=== PATIENT | female | born 1960 | race Caucasian/White ===

== ENCOUNTER 2020-02-15 08:24 | Emergency (ER) | payer MEDICAID ==
[~2020-02-15] VITALS: Ht 154.9 cm; Wt 57.5 kg
[~2020-02-15 08:24] MED LIST: ASCO500T9 PO; CHLO25CA9 PO; CHOL500045 PO; GABA300C PO; ZINC220C7 PO
--- NOTE | 2020-02-15 08:50 | NUR ---
PT WITH RECENT DIAGNOSIS OF LIVER CIRROHSIS D/T ETOH ABUSE. PT SEEN HERE RECENTLY WITH PARACENTESIS. PT D/C WAS UNABLE TO FILL MEDICATIONS D/T HER INSURRANCE, SHE IS BACK TO HAVE HER ABD DRAINED AGAIN. PT DENIES N/V/D.
[2020-02-15 09:21] LABS: BASOPHILS # (AUTO) 0.02 x10^3/uL (0-0.1); BASOPHILS % (AUTO) 0 % (0-1); EOSINOPHILS # (AUTO) 0.06 x10^3/uL (0-0.4); EOSINOPHILS % (AUTO) 1 % (1-7); LYMPHOCYTES % (AUTO) 36 % (22-44); MD NO; MEAN CORPUSCULAR HEMOGLOBIN 35.2 pg (27.0-34.8); MEAN CORPUSCULAR HGB CONC 33.3 g/dL (32.4-35.8); MEAN CORPUSCULAR VOLUME 105.8 fL (80-100); MEAN PLATELET VOLUME 7.6 fL (7.4-10.4); MONOCYTES # (AUTO) 0.51 x10^3/uL (0.2-0.8); MONOCYTES % (AUTO) 9 % (2-9); NEUTROPHILS # (AUTO) 2.97 x10^3/uL (1.8-6.8); NEUTROPHILS % (AUTO) 53 % (42-75); PLATELET COUNT 123 x10^3/uL (130-400); RED BLOOD COUNT 3.72 x10^6/uL (3.82-5.3)
[2020-02-15 09:31] LABS: INTERNATIONAL NORMALIZED RATIO 1.27 (0.93-1.1); PROTHROMBIN TIME 13.1 Seconds (9.6-11.5)
[2020-02-15 09:32] VITALS: BP 129/89
[2020-02-15 09:33] LABS: ALBUMIN 2.4 g/dL (3.4-5.0); ANION GAP 4 mmol/L (5-15); CHLORIDE 110 mmol/L (98-107)
[2020-02-15 09:38] LABS: ALANINE AMINOTRANSFERASE 59 U/L (12-78); ALKALINE PHOSPHATASE 161 U/L (45-117); BILIRUBIN,TOTAL 1.7 mg/dL (0.2-1.0); CREATININE 0.63 mg/dL (0.55-1.02); TOTAL PROTEIN 6.8 g/dL (6.4-8.2)
--- NOTE | 2020-02-15 09:40 | NUR ---
US AT BEDSIDE
[2020-02-15] MEDS ORDERED: LIDOCAINE 1%, 10ML ONE (10:06)
== END 2020-02-15 11:26 | disposition home or self-care (01) ==
LOC: ED 09:36
DX: K70.31 Alcoholic cirrhosis of liver with ascites (principal); R94.31 Abnormal electrocardiogram [ECG] [EKG]; F17.210 Nicotine dependence, cigarettes, uncomplicated
CPT/HCPCS: 36415; 49083; 76705; 80053; 83690; 83735; 85025; 85610; 93005; 99285; J3490

== ENCOUNTER 2020-03-05 14:14 | Emergency (ER) | payer MEDICAID ==
[~2020-03-05] VITALS: Ht 154.9 cm; Wt 59.1 kg
[2020-03-05 15:16] LABS: BASOPHILS # (AUTO) 0.04 x10^3/uL (0-0.1); BASOPHILS % (AUTO) 1 % (0-1); EOSINOPHILS # (AUTO) 0.08 x10^3/uL (0-0.4); EOSINOPHILS % (AUTO) 1 % (1-7); LYMPHOCYTES # (AUTO) 2.18 x10^3/uL (1-3.4); LYMPHOCYTES % (AUTO) 37 % (22-44); MD NO; MEAN CORPUSCULAR HGB CONC 34.2 g/dL (32.4-35.8); MEAN CORPUSCULAR VOLUME 102.4 fL (80-100); MEAN PLATELET VOLUME 8.1 fL (7.4-10.4); MONOCYTES # (AUTO) 0.76 x10^3/uL (0.2-0.8); MONOCYTES % (AUTO) 13 % (2-9); NEUTROPHILS # (AUTO) 2.81 x10^3/uL (1.8-6.8); NEUTROPHILS % (AUTO) 48 % (42-75); PLATELET COUNT 163 x10^3/uL (130-400); RED BLOOD COUNT 3.62 x10^6/uL (3.82-5.3); RED CELL DISTRIBUTION WIDTH 14.1 % (9.6-15.2)
[2020-03-05 15:29] LABS: INTERNATIONAL NORMALIZED RATIO 1.22 (0.93-1.1); PROTHROMBIN TIME 12.6 Seconds (9.6-11.5)
--- NOTE | 2020-03-05 15:45 | NUR ---
CORE STICKER: PT TO ROOM AT THIS TIME. KATHIA
[2020-03-05 15:52] LABS: CHLORIDE 109 mmol/L (98-107)
--- NOTE | 2020-03-05 15:54 | NUR ---
CONTACT WITH PT, 59 YR OLD FEMALE HERE WITH C/O "MY TUMMY NEEDS TO BE DRAINED. IT TOOK LONGER THIS TIME TO BE FILLED (WEEK TO WEEK AND A HALF)" PT JUST UNCOMFORTABLE. "I QUIT DRINKING COLD TURKEY ON FEBRUARY 10. I WAS JUST DONE"
[2020-03-05 15:56] LABS: ALANINE AMINOTRANSFERASE 58 U/L (12-78); ALBUMIN 2.4 g/dL (3.4-5.0); ALKALINE PHOSPHATASE 172 U/L (45-117); ANION GAP 5 mmol/L (5-15); BILIRUBIN,TOTAL 1.1 mg/dL (0.2-1.0); CALCIUM 8.7 mg/dL (8.5-10.1); CREATININE 0.61 mg/dL (0.55-1.02); TOTAL PROTEIN 6.9 g/dL (6.4-8.2)
[2020-03-05] MEDS ORDERED: MULT-658 PO (16:00)
[2020-03-05] MEDS ORDERED: VITA1TAB19 PO (16:00)
--- NOTE | 2020-03-05 16:55 | NUR ---
PT IN IR FOR PARACENTESIS
[2020-03-05 17:24] VITALS: BP 161/86
--- NOTE | 2020-03-05 17:25 | NUR ---
PT RETURN TO ROOM, STATES "I FEEL SO MUCH BETTER" ABD CONT ROUNDED, DECREASED IN SIZE AND SOFT. WAITING FOR FURTHER DISPOSITION.
--- NOTE | 2020-03-05 18:14 | NUR ---
NO IV TO DC. REVIEWED DC INSTRUCTIONS WITH PT. UNDERSTANDING VERBALIZED. PT LEFT AMB, GAIT STEADY.
== END 2020-03-05 18:16 | disposition home or self-care (01) ==
LOC: ED 17:50
DX: K70.31 Alcoholic cirrhosis of liver with ascites (principal); F17.210 Nicotine dependence, cigarettes, uncomplicated
CPT/HCPCS: 36415; 49083; 80053; 85025; 85610; 99285; 99406

== ENCOUNTER 2020-03-16 18:19 | Emergency (ER) | payer MEDICAID ==
[~2020-03-16] VITALS: Ht 154.9 cm; Wt 58.7 kg
[~2020-03-16 18:19] MED LIST changes: +MULT-658 PO; +VITA1TAB19 PO
--- NOTE | 2020-03-16 18:40 | NUR ---
THIS IS A 59 YO FEMALE RECENTLY DIAGNOSED WITH CIRRHOSIS BEGINNING OF FEBRUARY, COMING IN WITH C/O ABD DISTENTION AND "FEELING FULL". MARKED ASCITIC ABDOMEN PRESENT, FIRM TO TOUCH, NO PAIN NOTED. LAST PARACENTESIS DONE Feb. A&OX4, GCS 15, MOVES ALL EXTREMITIES WELL. RESPIRATIONS EVEN AND UNLABORED, LUNG SOUNDS CLEAR THROUGHOUT. ALL MONITORING IN PLACE, NSR ON REHABILITATION SPECIALIST. VSS, CALL LIGHT IN REACH
[2020-03-16] MEDS ORDERED: LIDOCAINE 1%, 10ML ONE (19:05)
--- NOTE | 2020-03-16 19:11 | NUR ---
PATIENT TO IR
--- NOTE | 2020-03-16 19:50 | NUR ---
Pt return from IR at this time, states feeling "much better", reports 2200ml drained off
[2020-03-16 19:51] VITALS: BP 121/78
--- NOTE | 2020-03-16 20:36 | NUR ---
Patient given discharge instructions and they have confirmed that they understand the instructions. Patient ambulatory with steady gait.
== END 2020-03-16 20:39 | disposition home or self-care (01) ==
LOC: ED 19:53
DX: K70.31 Alcoholic cirrhosis of liver with ascites (principal); R10.84 Generalized abdominal pain; F17.200 Nicotine dependence, unspecified, uncomplicated
CPT/HCPCS: 49083; 99285; J3490

== ENCOUNTER 2020-03-23 19:45 | Emergency (ER) | payer MEDICAID ==
[~2020-03-23] VITALS: Ht 157.5 cm; Wt 59.1 kg
[2020-03-23 22:21] VITALS: BP 170/99
[2020-03-23 22:55] LABS: BASOPHILS # (AUTO) 0.03 x10^3/uL (0-0.1); BASOPHILS % (AUTO) 0 % (0-1); EOSINOPHILS # (AUTO) 0.13 x10^3/uL (0-0.4); EOSINOPHILS % (AUTO) 2 % (1-7); LYMPHOCYTES # (AUTO) 2.64 x10^3/uL (1-3.4); LYMPHOCYTES % (AUTO) 37 % (22-44); MD NO; MEAN CORPUSCULAR HEMOGLOBIN 33.8 pg (27.0-34.8); MEAN CORPUSCULAR HGB CONC 33.9 g/dL (32.4-35.8); MEAN CORPUSCULAR VOLUME 99.7 fL (80-100); MEAN PLATELET VOLUME 7.3 fL (7.4-10.4); MONOCYTES # (AUTO) 0.76 x10^3/uL (0.2-0.8); MONOCYTES % (AUTO) 11 % (2-9); NEUTROPHILS # (AUTO) 3.54 x10^3/uL (1.8-6.8); NEUTROPHILS % (AUTO) 50 % (42-75); PLATELET COUNT 181 x10^3/uL (130-400); RED BLOOD COUNT 3.83 x10^6/uL (3.82-5.3); RED CELL DISTRIBUTION WIDTH 13.9 % (9.6-15.2)
[2020-03-23 23:18] LABS: ALBUMIN 2.5 g/dL (3.4-5.0); CALCIUM 8.7 mg/dL (8.5-10.1)
[2020-03-23 23:49] LABS: ALANINE AMINOTRANSFERASE 56 U/L (12-78); ALKALINE PHOSPHATASE 178 U/L (45-117); CHLORIDE 109 mmol/L (98-107); CREATININE 0.73 mg/dL (0.55-1.02); TOTAL PROTEIN 7.2 g/dL (6.4-8.2)
[2020-03-23 23:50] LABS: ANION GAP 3 mmol/L (5-15); BILIRUBIN,TOTAL 0.7 mg/dL (0.2-1.0)
== END 2020-03-23 23:17 | disposition left against medical advice (07) ==
LOC: ED 23:11
DX: K74.69 Other cirrhosis of liver (principal); R14.0 Abdominal distension (gaseous); M79.661 Pain in right lower leg; R06.02 Shortness of breath
CPT/HCPCS: 36415; 80053; 83690; 85025; 99283

== ENCOUNTER 2020-03-24 04:54 | Emergency (ER) | payer MEDICAID ==
[~2020-03-24] VITALS: Ht 154.9 cm; Wt 59.0 kg
--- NOTE | 2020-03-24 05:20 | NUR ---
PT REPORTS COMING IN TONIGHT BECAUSE "I AM FULL AGAIN", PT REPORTS "LIVER PROBLEMS", [place]ST [place] HAD PARACENTESIS. PT DENIES NAUSEA OR VOMITING. REPORT MILD SOB. STATES LAST BM YESTERDAY EVENING. ANOx4, GROSS NEURO INTACT. WCTM. PT PLACED ON SPO2/BP MONITORING, GIVEN WARM BLANKETS FOR COMFORT.
--- NOTE | 2020-03-24 05:37 | NUR ---
ARACELY SERRANO AT FOR EVAL AND POC.
[2020-03-24] MEDS ORDERED: LIDOCAINE 1%, 10ML ONE (06:32)
--- NOTE | 2020-03-24 06:41 | NUR ---
PT RESTING ON GURNEY, PARACENTESIS MRI SCREENING COMPLETED. PT NAD, EYES CLOSED, EVEN AND UNLABORED RESPIRATIONS, APPEARS COMFORTALBE, LIGHTS DIMMED FOR COMFORT. WCTM.
--- NOTE | 2020-03-24 06:50 | NUR ---
REPORT RECEIVED FROM NOC ARIELLA, PRIETO.
--- NOTE | 2020-03-24 06:50 | NUR ---
REPORT TO CHARLEE KRISHNAN, PT CARE TRANSFERRED AT THIS TIME.
--- NOTE | 2020-03-24 07:00 | NUR ---
PT RESTING ON GURNEY WATCHING TV AND ABLE TO DOZE OFF. NAD AND NO ADDITIONAL NEEDS AT THIS TIME. CALL LIGHT WITHIN REACH, COMFORT MEASURES PROVIDED AND FALL PRECAUTIONS IN PLACE.
--- NOTE | 2020-03-24 08:10 | NUR ---
PT RESTING ON GURNEY WITH EYES CLOSED. ERP AT BEDSIDE DISCUSSING D/C PLAN. NAD DISTRESS NOTED. NO ADDITIONAL NEEDS AT THIS TIME. CALL LIGHT WITHIN REACH, FALL PRECAUTIONS IN PLACE.
[2020-03-24 08:13] VITALS: BP 156/84
--- NOTE | 2020-03-24 08:27 | NUR ---
Patient given discharge instructions and they have confirmed that they understand the instructions. Patient ambulatory with steady gait.
== END 2020-03-24 08:45 | disposition home or self-care (01) ==
LOC: ED 06:24
DX: K70.31 Alcoholic cirrhosis of liver with ascites (principal)
CPT/HCPCS: 49083; 99285; J3490

== ENCOUNTER 2020-03-29 20:30 | Emergency (ER) | payer MEDICAID ==
[~2020-03-29] VITALS: Ht 154.9 cm; Wt 58.7 kg
--- NOTE | 2020-03-29 21:05 | NUR ---
Note braxton in ED - 03/29/20 at 2106 by MARIE THIS IS A 59 YO FEMALE COMING IN FOR FLUID ACCUMULATION IN [place] AND NO APPETITE. PT STATES SHE NEEDS A PARACENTESIS, BUT CAN'T GET INTO HER DOCTOR TO DO IT LIKE USUAL. HX LIVER FAILURE, FREQUENTS THIS ER FOR PARACENTESIS. A&OX4, VSS, NADN AT THIS TIME. ABDOMEN DISTENDED, ROUNDED, AND FIRM. CALL LIGHT IN REACH
[2020-03-29] MEDS ORDERED: LIDOCAINE 1%, 10ML ONE (21:43)
--- NOTE | 2020-03-29 22:07 | NUR ---
PATIENT RESTING ON GURNEY, RESPIRATIONS EVEN AND UNLABORED. KATHIA GARCIA. CALL LIGHT IN REACH
--- NOTE | 2020-03-29 22:23 | NUR ---
SPOKE WITH US, THEY HAD TO CALL IN STAFF
[2020-03-29 23:11] VITALS: BP 150/82
== END 2020-03-29 23:13 | disposition home or self-care (01) ==
LOC: ED 20:57
DX: K70.31 Alcoholic cirrhosis of liver with ascites (principal); R10.84 Generalized abdominal pain; E87.6 Hypokalemia
CPT/HCPCS: 99283; J3490

== ENCOUNTER 2020-04-10 12:32 | Emergency (ER) | payer MEDICAID ==
[~2020-04-10] VITALS: Ht 154.9 cm; Wt 59.9 kg
[2020-04-10] MEDS ORDERED: LIDOCAINE 1%, 10ML ONE (13:43)
--- NOTE | 2020-04-10 13:57 | NUR ---
Pt to paracentesis
--- NOTE | 2020-04-10 14:00 | NUR ---
Pt here for worsening ascites. Denies discomfort. States recent ETOH cessation
--- NOTE | 2020-04-10 14:32 | NUR ---
break RN note: pt remains in IR for paracentesis.
--- NOTE | 2020-04-10 14:52 | NUR ---
pt back from [place], pt speaking with registration staff. nadn. awaiting dc paperwork from provider at this time.
--- NOTE | 2020-04-10 15:10 | NUR ---
Pt updated on POC, waiting for DC
[2020-04-10 16:12] VITALS: BP 147/83
== END 2020-04-10 16:14 | disposition home or self-care (01) ==
LOC: ED 14:42
DX: K70.31 Alcoholic cirrhosis of liver with ascites (principal); G89.29 Other chronic pain; R10.84 Generalized abdominal pain; E87.6 Hypokalemia
CPT/HCPCS: 49083; 99285; J3490